=== PATIENT | female | born 1960 | race Caucasian/White ===

== ENCOUNTER 2020-07-04 13:42 | Emergency (ER) | payer OTHER ==
[2020-07-04] MEDS ORDERED: HYDROmorphone 1 MG/ML Syringe IVPUSH ONE ×4 (13:43→15:48)
[2020-07-04] MEDS ORDERED: Sodium Chloride 0.9% 10 ML Syringe FLUSH PRN (13:43)
[2020-07-04] MEDS ORDERED: Prochlorperazine 10 MG/2 ML SDV IV ONE (13:55)
--- NOTE | 2020-07-04 13:55 | EDM.PDOC ---
ED HPI GENERAL MEDICAL PROBLEM - General Time Seen by Provider: 07/04/20 13:42 History Limitations: Reports: No Limitations - History of Present Illness INITIAL COMMENTS - FREE TEXT/NARRATIVE: Pt. presents to ER with complaints of L lower leg/ankle pain. Pt. states that she "ran into a rock" when she was sledding. Denies hitting her head or torso, and states that the discomfort is isolated to the L lower leg/ankle. Did not strike head. No neck trauma. Pt. primary area of complaint is the the mid lower leg area. She states that she has no discomfort proximal to the knee. No hip pain. Denies any foot pain. She states that she does have some discomfort is the distal portion of the lower leg but primarily in the mid tib fib area. Onset: Today Location: Reports: Lower Extremity, Left Improves with: Reports: Rest Worsens with: Reports: Movement Left Lower Leg Pain Score (Numeric/FACES): 10 - Related Data Allergies Allergy/AdvReac Type Severity Reaction Status Date / Time amoxicillin Allergy Hives Verified 07/04/20 14:18 Home Meds: Home Meds Fluticasone Propionate [Flonase] 1 spray NASBOTH DAILY 07/04/20 [History] ED ROS GENERAL - Review of Systems Review Of Systems: Comprehensive ROS is negative, except as noted in HPI. ED EXAM, GENERAL - Physical Exam Exam: See Below Exam Limited By: No Limitations General Appearance: Alert, Severe Distress Head: Atraumatic, Normocephalic Neck: Non-Tender Respiratory/Chest: Chest Non-Tender GI/Abdominal: Pelvis Stable Back Exam: Normal Inspection, Full Range of Motion Extremities: Leg Pain, Limited Range of Motion, Other (Extreme pain, worse with movement. No obvious deformity noted. Pt. is resistant to palpation/manipulation of the L lower leg. No obvious dislocation to ankle or knee. ) ED GENERAL MEDICAL PROCEDURES - Splinting Left Lower Extremity Pre-procedure NV status: Normal Post-procedure NV status: Normal Splint Type: Custom Splint Material: Fiberglass Splint Design: Posterior Applied & Form Fitted By: Provider, Nurse Provider Post-Splint Application NV Check: NV Status Normal, Good Position Course - Vital Signs Last Recorded V/S: Last Vital Signs Temp 37.7 C 07/04/20 13:45 Pulse 103 H 07/04/20 13:45 Resp 16 07/04/20 13:45 BP 137/86 07/04/20 13:45 Pulse Ox 95 07/04/20 13:45 - Orders/Labs/Meds Orders: Active Orders 24 hr Category Date Time Status Ankle Min 3V Lt [CR] Stat Exams 07/04/20 13:45 Ordered Tibia Fibula Lt [CR] Stat Exams 07/04/20 13:44 Ordered COMPREHENSIVE METABOLIC PN,CMP [CHEM] Stat Lab 07/04/20 13:50 Received INR,PT,PROTHROMBIN TIME [COAG] Stat Lab 07/04/20 13:50 Received Sodium Chloride 0.9% [Saline Flush] Med 07/04/20 13:43 Active 10 ml FLUSH ASDIRECTED PRN Peripheral IV Insertion Adult [OM.PC] Routine Oth 07/04/20 13:43 Ordered Medication Orders Sodium Chloride (Saline Flush) 10 ml FLUSH ASDIRECTED PRN PRN Reason: Keep Vein Open Labs: Laboratory Tests 07/04/20 Range/Units 13:50 WBC 9.7 (4.0-10.0) x10^3/uL RBC 4.50 (4.00-5.50) x10^6/uL Hgb 13.0 (12.0-16.0) g/dL Hct 39.5 (33.0-47.0) % MCV 87.8 (78.0-93.0) fL MCH 28.9 (26.0-32.0) pg MCHC 32.9 (32.0-36.0) g/dL RDW Coeff of Damian 14.0 (10.0-15.0) % Plt Count 268 (130-400) x10^3/uL Neut % (Auto) 64.6 (50.0-80.0) % Lymph % (Auto) 24.6 L (25.0-50.0) % [place] % (Auto) 7.9 (2.0-11.0) % Eos % (Auto) 2.7 (0.0-4.0) % Baso % (Auto) 0.2 (0.2-1.2) % Meds: Medications Generic Name Dose Route Start Last Admin Trade Name Freq PRN Reason Stop Dose Admin Sodium Chloride 10 ml 07/04/20 13:43 Saline Flush FLUSH ASDIRECTED PRN Keep Vein Open Discontinued Medications Generic Name Dose Route Start Last Admin Trade Name Devika PRN Reason Stop Dose Admin Hydromorphone HCl 1 mg 07/04/20 13:43 07/04/20 13:50 Dilaudid IVPUSH 07/04/20 13:44 1 mg ONETIME ONE Administration Hydromorphone HCl 1 mg 07/04/20 14:04 07/04/20 14:07 Dilaudid IVPUSH 07/04/20 14:05 1 mg ONETIME ONE Administration Prochlorperazine Edisylate 5 mg 07/04/20 13:55 07/04/20 14:07 Compazine IV 07/04/20 13:56 5 mg ONETIME ONE Administration - Radiology Interpretation Free Text/Narrative:: complex L distal tib fib fracture. - Re-Assessments/Exams Free Text/Narrative Re-Assessment/Exam: 07/04/20 14:41 IV access established. Pt. was given 1 mg of dilaudid IV and 5 mg compazine on arrival to ER. Pt. was well controlled with subsequent doses of dilaudid IV. Departure - Departure Time of Disposition: 15:30 Disposition: DC/Tfer to Acute Hospital 02 Clinical Impression: Fracture of distal end of tibia with fibula - Discharge Information Sepsis Event Note (ED) - Focused Exam Vital Signs: Vital Signs Temp Pulse Resp BP Pulse Ox 07/04/20 13:45 37.7 C 103 H 16 137/86 95 - Problem List Review Problem List Initiated/Reviewed/Updated: Yes - My Orders Last 24 Hours: My Active Orders 07/04/20 13:43 Sodium Chloride 0.9% [Saline Flush] 10 ml FLUSH ASDIRECTED PRN Peripheral IV Insertion Adult [OM.PC] Routine 07/04/20 13:44 Tibia Fibula Lt [CR] Stat 07/04/20 13:45 Ankle Min 3V Lt [CR] Stat 07/04/20 13:50 COMPREHENSIVE METABOLIC PN,CMP [CHEM] Stat INR,PT,PROTHROMBIN TIME [COAG] Stat - Assessment/Plan Last 24 Hours: My Active Orders 07/04/20 13:43 Sodium Chloride 0.9% [Saline Flush] 10 ml FLUSH ASDIRECTED PRN Peripheral IV Insertion Adult [OM.PC] Routine 07/04/20 13:44 Tibia Fibula Lt [CR] Stat 07/04/20 13:45 Ankle Min 3V Lt [CR] Stat 07/04/20 13:50 COMPREHENSIVE METABOLIC PN,CMP [CHEM] Stat INR,PT,PROTHROMBIN TIME [COAG] Stat Plan: Pt. will be transferred to [facility]. Dr. Jc is accepting. She will be transported via [facility] ground ambulance. Remain NPO. Pain was well controlled with IV dilaudid. She can receive further analgesia during transport per EMS pr otocol.
[2020-07-04 14:53] LABS: CHLORIDE,CL 101 mmol/L (98-107); SODIUM,NA 139 mmol/L (136-145)
[2020-07-04 14:54] LABS: ANION GAP 16.3 mmol/L (5-15)
--- NOTE | 2020-07-04 14:55 | CR ---
[id number] RAD/RAD Tibia Fibula Left EXAM: 4 VIEWS LEFT TIB-FIB. INDICATION: RAN INTO ROCK SLEDDING. COMPARISON: None. DISCUSSION: Acute multi fragmentary obliquely oriented fractures involving the distal left tibia and fibula. The fibular fracture demonstrates multiple fracture fragments with angulation and 5 mm of subluxation. The distal fibular fracture demonstrates slight angulation with minimal displacement. Moderate degenerative changes of the left ankle. IMPRESSION: 1. As above. Germán Lovett DO 07/04/20 [id number] Thank you for allowing us to participate in the care of your patient.
--- NOTE | 2020-07-04 14:56 | CR ---
[id number] RAD/RAD Ankle Left 3V Min EXAM: 4 VIEWS LEFT ANKLE. INDICATION: RAN INTO ROCK WHILE SLEDDING. COMPARISON: None. DISCUSSION: Acute multi fragmentary obliquely oriented fractures involving the distal left tibia and fibula. The fibular fracture demonstrates multiple fracture fragments with angulation and 5 mm of subluxation. The distal fibular fracture demonstrates slight angulation with minimal displacement. Moderate degenerative changes of the left ankle. IMPRESSION: 1. As above. Germán Lovett DO 07/04/20 [id number] Thank you for allowing us to participate in the care of your patient.
[2020-07-04] MEDS ORDERED: Ondansetron 4 MG/2 ML SDV IVPUSH ONE (15:48)
== END 2020-07-04 16:00 | disposition short-term general hospital (02) ==
LOC: VM.ED 13:42
DX: S82.302A Unspecified fracture of lower end of left tibia, initial encounter for closed fracture (principal); S82.832A Other fracture of upper and lower end of left fibula, initial encounter for closed fracture; Z88.0 Allergy status to penicillin; W22.8XXA Striking against or struck by other objects, initial encounter
CPT/HCPCS: 29515; 36415; 73590-LT; 73610-LT; 80053; 85025; 85610; 96374; 96375; 96376; 99283; 99285-25; J0780; J1170; J2405

== ENCOUNTER 2022-05-11 10:26 | Emergency (ER) | payer OTHER | END 2022-05-11 11:07 | disposition home or self-care (01) | LOC: VM.ED 10:26 | DX: L08.9 Local infection of the skin and subcutaneous tissue, unspecified (principal); B95.8 Unspecified staphylococcus as the cause of diseases classified elsewhere; Z88.0 Allergy status to penicillin; Z91.030 Bee allergy status | CPT/HCPCS: 99282 ==